=== PATIENT | male | born 1945 | race Caucasian/White ===

== ENCOUNTER 2020-03-24 12:54 | Inpatient (IN) | payer OTHER, MEDICAID ==
[~2020-03-24] VITALS: Ht 180.3 cm; Wt 106.6 kg
[2020-03-24] VITALS (14 sets, daily range): BP systolic 112–138; BP diastolic 37–82
--- NOTE | ~2020-03-24 | CON ---
[address] [address] CONSULTATION Name: RENEE COREA Room: [address] IN .R.#: [id number] Admission: 03/24/20 Attend Phys: Honorio Downs Discharge: Date of : 43 Report #: [id number] THIS REPORT FOR: //name// cc: Tevin Schafer MD, Richard T. MD ~ DATE OF SERVICE: 03/24/2020 NEPHROLOGY CONSULTATION REASON FOR CONSULT: Acute kidney injury. HISTORY OF PRESENT ILLNESS: A 74-year-old gentleman who was admitted from a nursing facility with altered mental status and elevated blood sugars. Two weeks ago, he was positive for COVID-19 and multiple people in the facility that he is at were also positive. He is very restless and not able to provide any meaningful history at present time. Case was discussed with Dr. Feliz in detail. He has an admission creatinine of 2 and is chronically ill-appearing. REVIEW OF SYSTEMS: Constitutional, psych, heme, eyes, ENT, respiratory, cardiac, GI, , endocrine, all negative except as documented above. PAST MEDICAL HISTORY: Insulin-dependent diabetes, hypertension, history of prostate surgery, back surgery, and seizure disorder. SOCIAL HISTORY: No tobacco or alcohol. FAMILY HISTORY: Not pertinent in this 74-year-old gentleman. CURRENT MEDICATIONS: Reviewed. PHYSICAL EXAMINATION: VITAL SIGNS: Blood pressure 138/58, pulse is in the low 100s, respirations 23, and temperature 36.1. GENERAL: Restless. EYES: Open. EARS: Externally normal. CARDIOVASCULAR: Tachycardic. LUNGS: Diminished. ABDOMEN: Soft. MUSCULOSKELETAL: Nontender. PSYCHIATRIC: Disoriented and nonverbal for me. LABORATORY DATA: White count 19.3, hemoglobin 19.5, and platelets 523. Sodium 149, potassium 3.3, chloride 104, bicarbonate 35, BUN 57, creatinine 2, glucose 531, calcium 9.8, magnesium 3, and albumin 3.7. [place] [address] CONSULTATION Name: RENEE COREA Room: [address] IN [facility].#: [id number] Admission: 03/24/20 Attend Phys: Honorio Downs Discharge: Date of : 43 Report #: [id number] ASSESSMENT: 1. Acute kidney injury secondary to volume depletion. He was on Lasix and had severe hyperglycemia presentation with a hemoglobin of about 20 and creatinine is 2 on admission. He was also on an ARB. UA is unrevealing. In 2015, creatinine 0.6. 2. Insulin-dependent diabetes, admitted with significant hyperglycemia. 3. Hypokalemia. 4. Metabolic alkalosis with a chemistry bicarbonate of 35. 5. Hypertension. 6. Seizure disorder. 7. Hypernatremia, sodium of 149 in the setting of a blood sugar of 531. Corrected sodium is 156. PLAN: 1. Aggressively hydrate. 2. Check phosphorus. 3. Replace potassium. We will recheck a potassium and replace as needed. Expect potassium to go down with correction of the hyperglycemia. 4. Hypermagnesemia. Magnesium of 3. We will monitor and expect this will stabilize. 5. Renal ultrasound not indicated at this time. We will continue with hydration. The patient is chronically ill appearing. Dr. Feliz is planning to contact family to clarify code status and goals of care. Case was discussed with Dr. Feliz. We will follow along with you. Thank you for requesting my opinion in the care and management of this patient. By: 1623 1958Achloé Cano MD /nt
[~2020-03-24 12:54] MED LIST: ALLE PO; ANUSOL-HC25 MG RECTAL; BAYER CHEWABLE81 MG PO; BENICAR20 MG PO; BENICAR40 MG PO; CELEBREX 200 M200 M1 PO; CLARITIN10 MG PO; COLACE100 MG PO; DILANTIN100 MG PO; ENOXAPARIN40 MG/0.1 SUBQ; FISH OIL 1,001000 M2 PO; HAIR, SKIN & N1 EAC1 PO; HYDROCODONE-AP1 EAC6 PO; HYDROCORTISONE30 G9 TOP; MILK OF MA2400 MG/10 PO; MIRALAX17 GM PO; NASAL SPRAY30 M1 NS; PROTONIX40 M1 PO; SALINE NASAL SP30 ML INH; SUDOGEST COLD PO; TYLENOL PM EX-1 EACH PO; TYLENOL325 MG PO; VITAMINC500 PO; [UNRECOGNIZED DRUG - OTHER] PO
--- NOTE | 2020-03-24 13:05 | NUR ---
PER REPORT FROM JOSUE, AT [facility], PT'S NORMAL MENTATION IS A&O X3, UP AD CANDIE. PT TESTED POSITIVE FOR COVID 2 WEEKS AGO. OVER LAST 3 DAYS, PT'S BLOOD SUGAR HAS BEEN ELEVATED AT 370+, PT NOT EATING, ELEVATED BP AND HR. PT HAS ALSO BEEN PLACED ON O2 SINCE COVID TEST. TODAY PT IS COMBATIVE, DISORIENTED AND HAS NEW PRESSURE WOUND ON BOTTOM. PT RIPPING OF NASAL CANULA AND DESATS WITHOUT O2.
[2020-03-24] MEDS ORDERED: LEVEMIR100 UNIT/1 SUBQ (13:08)
[2020-03-24] MEDS ORDERED: NOVOLOG100 UNIT/1 SUBQ (13:08)
[2020-03-24] MEDS ORDERED: NORVASC10 MG PO (13:08)
[2020-03-24] MEDS ORDERED: ARTIFICIAL TEAR1510 OPHTHALMIC (13:09)
[2020-03-24] MEDS ORDERED: FAMOTIDINE 20 M20 MG PO (13:09)
[2020-03-24] MEDS ORDERED: CLARITIN10 M3 PO (13:10)
[2020-03-24] MEDS ORDERED: FISH OIL 1,0001 EAC9 PO (13:10)
[2020-03-24] MEDS ORDERED: LASIX 40 MG TAB40 MG PO (13:10)
[2020-03-24] MEDS ORDERED: SALINE NOSE SPR45 ML NASAL (13:11)
[2020-03-24 13:12] LABS: HEMOGLOBIN 19.5 gm/dL (14.0-18.0); MCHC 32.7 g/dL (28.0-37.0); MPV 8.2 fl. (7.2-11.1)
[2020-03-24] MEDS ORDERED: THEREMS-M1 EACH PO (13:12)
[2020-03-24] MEDS ORDERED: ZINC SULFATE220 MG PO (13:13)
[2020-03-24] MEDS ORDERED: MILK OF MA400 MG/5 M PO (13:14)
[2020-03-24] MEDS ORDERED: FLONASE 0.05%50 MCG NARES (13:14)
[2020-03-24] MEDS ORDERED: GAS RELIEF80 MG PO (13:15)
[2020-03-24 13:16] LABS: HEMATOCRIT 59.7 % (42.0-52.0); MCH 28.6 pg (26.0-34.0); MCV 87.6 fL (80.0-100.0); NUCLEATED RBCS 0 /100WBC; PLATELET COUNT* 523 thou/uL (150-400); RBC 6.81 mil/uL (4.50-6.00); RDW-CV 14.9 % (10.5-14.5); WBC 19.3 thou/uL (4.0-11.0)
[2020-03-24] MEDS ORDERED: TRAMADOL 50 MG50 MG PO (13:16)
[2020-03-24] MEDS ORDERED: KETOCONAZOLE15 GM TOP (13:18)
[2020-03-24] MEDS ORDERED: NYSTOP (13:18)
[2020-03-24] MEDS ORDERED: VITAMIN A & D OI5 GM TOP (13:18)
[2020-03-24] MEDS ORDERED: DESONIDE CR. 1515 G1 TOP (13:19)
[2020-03-24] MEDS ORDERED: DECADRON PO (13:20)
[2020-03-24 13:25] LABS: ANION GAP 10 mmol/L (7-16); BUN 57 mg/dL (7-18); CALCIUM 9.8 mg/dL (8.5-10.1); CHLORIDE 104 mmol/L (98-107); CO2 35 mmol/L (21-32); POTASSIUM 3.3 mmol/L (3.5-5.1); SODIUM 149 mmol/L (136-145)
[2020-03-24 13:30] LABS: GLUCOSE 531 mg/dL (70-99)
[2020-03-24 13:30] LABS: BE 3.7 mmol/L (-2 to +3); PCO2 37.1 mmHg (35.0-45.0); PO2 61.7 mmHg (75.0-100.0)
[2020-03-24 13:33] LABS: ALBUMIN 3.7 g/dL (3.4-5.0); ALKALINE PHOSPHATASE 133 U/L (46-116); SGOT 18 U/L (15-37); TOTAL BILIRUBIN 0.9 mg/dL (<0.1-1.0); TOTAL PROTEIN 8.8 g/dL (6.4-8.2)
[2020-03-24 13:39] LABS: ABSOLUTE LYMPHOCYTES 2.9 thou/uL (0.8-5.3); ABSOLUTE MONOCYTES 0.4 thou/uL (0.0-1.2); PLATELET ESTIMATE ADEQUATE
[2020-03-24 13:54] LABS: SGPT 41 U/L (30-65)
[2020-03-24 14:01] LABS: URINE BILIRUBIN NEGATIVE (Negative); URINE BLOOD NEGATIVE (Negative); URINE CLARITY CLEAR; URINE COLOR YELLOW; URINE GLUCOSE-RANDOM 2+ (Negative); URINE KETONES NEGATIVE (Negative); URINE LEUKOCYTES-REFLEX NEGATIVE (Negative); URINE NITRITE-REFLEX NEGATIVE (Negative); URINE PROTEIN NEGATIVE (Negative); URINE SPECIFIC GRAVITY 1.025 (1.005-1.030); URINE UROBILINOGEN 0.2 E.U./dl (0.2-1.0)
--- NOTE | 2020-03-24 15:35 | EKG ---
[place] [address] ELECTROCARDIOGRAM REPORT Name: RENEE COREA Room: [address] ADM IN [facility]#: [id number] Admission: 03/24/20 Attend Phys: Sedrick Feliz Discharge: Date of : 43 Date of Service: 03/24/20 1349 Report #: [id number] THIS REPORT FOR: //name// [facility] ED Test Date: 2020-03-24 Test Time: 13:49:30 Pat Name: RENEE COREA Department: Room: [facility] Gender: M Ear Flap Binder: LARUIE : 1945 Requested By: Daylin Tam Order Number: [id number] MD: Channing German Measurements Intervals [place] Rate: 106 P: 49 HI: 169 QRS: 204 QRSD: 101 T: 45 QT: 352 QTc: 468 Interpretive Statements Sinus tachycardia Probable left atrial enlargement Inferior infarct, old Anterior infarct, old Compared to ECG 05/15/2015 13:33:04 Myocardial infarct finding now present Electronically Signed On 03-24-2020 15:35:00 [employer] by Channing German [email or web address] <ELECTRONICALLY SIGNED> By: Channing German MD, FACC 03/24/20 1535 1349 1349 Channing German MD, [facility] /EPI
[2020-03-24 17:46] LABS: ALBUMIN 3.4 g/dL (3.4-5.0); CALCIUM 9.5 mg/dL (8.5-10.1); CREATININE 1.9 mg/dL (0.6-1.3); MAGNESIUM 2.8 mg/dL (1.8-2.4); POTASSIUM 3.6 mmol/L (3.5-5.1)
--- NOTE | 2020-03-24 20:09 | NUR ---
admitted to icu @1600. combative at times with left arm. difficulty with iv access. dr amaral notified. warehouse foreman placed another peripheral. orders for picc in am. both sisters updated on condition and admission obtained from them. family requested dnr. dr amaral paged.
[2020-03-25] VITALS (16 sets, daily range): BP systolic 101–150; BP diastolic 57–135
[2020-03-25 04:30] LABS: ALBUMIN 2.9 g/dL (3.4-5.0); CALCIUM 9.5 mg/dL (8.5-10.1); CREATININE 1.4 mg/dL (0.6-1.3); MAGNESIUM 2.8 mg/dL (1.8-2.4); PHOSPHORUS* 3.6 mg/dL (2.5-4.9); POTASSIUM 3.1 mmol/L (3.5-5.1)
--- NOTE | 2020-03-25 05:35 | NUR ---
ASSUMED PATIENT CARE AT 1900. PATIENT ALERT TO SELF. PATIENT CAN BE AGITATED AND MOANS OUT LIKE HE IS IN PAIN. INSULIN GTT STILL GOING. BAKER IN PLACE TO DEPENDENT DRAINAGE. TURNED [id number]. WOUNDS TO BILATERAL BUTTOCKS. OPEN TO AIR. SCD'S REMEOVED R/T PATIENT STATUS. HOURLY BLOOD SUGARS COMPLETED.
--- NOTE | 2020-03-25 14:53 | NUR ---
WOUND NURSE: PATIENT SEEN TO ADDRESS BILATERAL BUTTOCK WOUNDS WHICH PRESENT WITH FULL THICKNESS TISSUE LOSS. RIGHT BUTTOCK WOUND MEASURES 4.0 X 1.5 X 0.2 CM. LEFT BUTTOCK MEASURES 2.5 X 2.0 X 0.2 CM. PRESENTS WITH PINK EARLY GRANULATION TISSUE IN THE WOUND BED. EDGES ARE IRRIGULAR AND APPEAR ERODED. THERE IS A MODERATE AMOUNT OF SEROUSANGUINOUS DRAINAGE NOTED. WOUNDS ARE PAINFUL TO TOUCH. CLEANSED WITH SOAP AND WATER, RINSED WITH WATER, THEN PATTED DRY. APPLIED SKIN PREP TO INTACT PERIWOUND TISSUE. APPLIED AQUACEL AG UNDER EXUDERM LP, THEN SECURED IN PLACE USING SURESITE TRANSPARENT DRESSING. PATIENT PLACED ON [facility] SPECIALTY BED AND IS ON A TURN SCHEDULE. PATIENT SHAKES HIS HEAD YES WHEN ASKED IF HE FEELS BETTER AFTER CARE PROVIDED. PATIENT IS TOTAL ASSIST WITH REPOSITIONING AND IS NOT TEACHEABLE AT TIME OF THIS ASSESSMENT.
--- NOTE | 2020-03-25 16:56 | NUR ---
ICU ROUNDS; PT PRESENTE W/AMS. PT NON VERBAL, PT WOULD NOT RESPOND VERBALLY TO CM, PT MUTTERED SOMETHNG UNINTELLIGIBLE. PT WAS COVID POSITIVE 2 WKS AGO THAT HAS CAUSE DECLINE IN PT CONDITION.
--- NOTE | 2020-03-25 18:29 | NUR ---
PATIENT BECOMING MORE ALERT, HE IS NOW ABLE TO ANSWER SIMPLE QUESTIONS. SISTER IN LAW CAME TO SEE HIM. PATIENT C/O PAIN AT BUTTOCKS AREA. PATIENT KEPT TURNED Q2H. WOUND CARE NURSE HERE TO SEE PATIENT TODAY AND ORDERS RECIEVED FOR WOUNDS. NO OTHER CONCERNS AT THIS TIME. WILL CONTINUE TO MONITOR AND CARE PER PLAN OF CARE.
[2020-03-26] VITALS (13 sets, daily range): BP systolic 103–141; BP diastolic 55–96
[2020-03-26 00:05] LABS: URINE BILIRUBIN NEGATIVE (Negative); URINE BLOOD 1+ (Negative); URINE CLARITY SL CLOUDY; URINE COLOR YELLOW; URINE GLUCOSE-RANDOM 2+ (Negative); URINE KETONES NEGATIVE (Negative); URINE LEUKOCYTES NEGATIVE (Negative); URINE NITRITE NEGATIVE (Negative); URINE PROTEIN NEGATIVE (Negative); URINE UROBILINOGEN 0.2 E.U./dl (0.2-1.0)
[2020-03-26 02:31] LABS: SQUAMOUS 0-3 Few /LPF (0-3)
[2020-03-26 02:32] LABS: URINE RBC 3-10 Few /HPF (0-2); URINE WBC 6-15 Few /HPF (0-5)
[2020-03-26 02:33] LABS: BACTERIA 1-9 Few /HPF (None Seen); URIC ACID CRYSTALS >10 Many /LPF (None Seen)
[2020-03-26 05:28] LABS: ABSOLUTE BASOPHILS 0.1 thou/uL (0.0-0.2); ABSOLUTE EOSINOPHILS 0.1 thou/uL (0.0-0.7); ABSOLUTE LYMPHOCYTES 3.2 thou/uL (0.8-5.3); ABSOLUTE MONOCYTES 1.2 thou/uL (0.0-1.2); BASOPHILS 0.8 %; EOSINOPHILS 1.1 %; HEMATOCRIT 45.2 % (42.0-52.0); LYMPHOCYTES 25.4 %; MCH 28.2 pg (26.0-34.0); MCHC 32.7 g/dL (28.0-37.0); MCV 86.3 fL (80.0-100.0); MONOCYTES 9.7 %; MPV 7.9 fl. (7.2-11.1); NUCLEATED RBCS 0 /100WBC; RBC 5.23 mil/uL (4.50-6.00); RDW-CV 14.3 % (10.5-14.5); WBC 12.6 thou/uL (4.0-11.0)
[2020-03-26 05:31] LABS: HEMOGLOBIN 14.8 gm/dL (14.0-18.0); PLATELET COUNT* 273 thou/uL (150-400)
[2020-03-26 07:29] LABS: ALBUMIN 2.5 g/dL (3.4-5.0); ALKALINE PHOSPHATASE 95 U/L (46-116); ANION GAP 8 mmol/L (7-16); BUN 31 mg/dL (7-18); CALCIUM 8.3 mg/dL (8.5-10.1); CHLORIDE 113 mmol/L (98-107); CO2 29 mmol/L (21-32); GLUCOSE 124 mg/dL (70-99); PHOSPHORUS* 3.4 mg/dL (2.5-4.9); POTASSIUM 3.4 mmol/L (3.5-5.1); SGOT 33 U/L (15-37); SGPT 34 U/L (30-65); SODIUM 150 mmol/L (136-145); TOTAL BILIRUBIN 0.9 mg/dL (<0.1-1.0); TOTAL PROTEIN 5.7 g/dL (6.4-8.2)
--- NOTE | 2020-03-26 09:15 | NUR ---
9242 ASSUMED CARE OF PATIENT. PLEASE SEE DOCUMENTED ASSESSMENT. PT REMAINS ON INSULIN DRIP
--- NOTE | 2020-03-26 14:10 | NUR ---
ICU rounds: M/s status. Off insulin gtt
--- NOTE | 2020-03-26 16:16 | NUR ---
tranferred to 313 with all records and belongings
--- NOTE | 2020-03-26 17:00 | NUR ---
REPORT RECIEVED FROM BRIAN RODARTE. I CONCUR WITH HER DOCUMENTATION. PT TRANSFERED TO ROOM 313. PT ON SPECIALTY BED. FALL PRECAUTIONS IN PLACE. FREQUENTLY USED ITEMS WITHIN REACH. PICC PATENT, FLUIDS INFUSING. JASPER REMAINS AT BEDSIDE.
--- NOTE | 2020-03-26 18:48 | NUR ---
1530 LATE ENTRY: PATIENT IS MED/SURG STATUS AND WILL BE TRANSFERRED TO ROOM 313. REPORT CALLED TO CAYDEN HASSAN
--- NOTE | 2020-03-27 08:09 | NUR ---
PATIENT HAS RESTED WELL THROUGHOUT THE NIGHT. VSS ON RA. MEDICATIONS GIVEN ORDERED AND CHARTED. PATIENT REMAINS BEDREST. BAKER TO DEPENDENT DRAINAGE WITH YELLOW URINE OUTPUT. RIGHT UPPER ARM TRIPLE LUMEN PICC-D5W @ 50ML/HR. DRESSING TO COCCYX IS INTACT WITH SMALL AMOUNT OF DRAINAGE NOTED. FALL PRECAUTIONS IN PLACE AND HOURLY ROUNDS MADE. WILL CONTINUE WITH PLAN OF CARE AND NURSING TO MONITOR.
--- NOTE | 2020-03-27 10:04 | NUR ---
TRANSFERRED FROM ICU LAST EVENING. PER REVIEW OF CHART, PT.IS A [facility] RESIDENT OF [facility]. HAD A TBI YEARS AGO. NORMALLY IS UP AD CANDIE, HAD A GOOD APPETITE, PLEASANT, ETC. PT.STILL CONFUSED,AGITATED AT TIMES, ETC. WILL FOLLOW FOR A SAFE DISCHARGE PLAN.
[2020-03-27 14:08] LABS: ALBUMIN 2.4 g/dL (3.4-5.0); CALCIUM 8.6 mg/dL (8.5-10.1); POTASSIUM 4.3 mmol/L (3.5-5.1); TOTAL BILIRUBIN 0.8 mg/dL (<0.1-1.0); TOTAL PROTEIN 5.4 g/dL (6.4-8.2)
[2020-03-27 16:00] VITALS: BP 134/65
--- NOTE | 2020-03-27 16:57 | NUR ---
PATIENT TURNED Q2. PATIENT A SET UP MEAL, PATIENT FEEDS SELF. PICC SL, FLUSHING WITHOUT DIFFICULTY AND GOOD BLOOD RETURN NOTED. NO COMPLAINTS OF PAIN. INSULIN GIVEN WITH MEALS ORDERED. BAKER REMAINS DRAINING YELLOW URINE. POSSIBLE DISCHARGE TOMORROW.
[2020-03-27 20:00] VITALS: BP 132/72
--- NOTE | 2020-03-28 04:54 | NUR ---
ASSESSMENT: PT REMAIN ALERT AND ORIENT TIMES THREE, VERY SLOW TO RESPOND. BAKER PATENT, NO BM THIS SHIFT. BR WITH TURNS EVERY TWO HOURS. VSS, AFEBRILE. NON-EVENTFUL NIGHT, SLEPT MOST OF THE SHIFT. SLOW PROGRESS TOWARDS DC GOALS, WILL CONTINUE TO MONITOR.
[2020-03-28 07:45] VITALS: BP 142/74
[2020-03-28 11:21] LABS: URINE BILIRUBIN NEGATIVE (Negative); URINE BLOOD 2+ (Negative); URINE CLARITY CLEAR; URINE COLOR YELLOW; URINE GLUCOSE-RANDOM 2+ (Negative); URINE KETONES TRACE (Negative); URINE LEUKOCYTES 1+ (Negative); URINE NITRITE NEGATIVE (Negative); URINE PROTEIN NEGATIVE (Negative); URINE UROBILINOGEN 0.2 E.U./dl (0.2-1.0)
[2020-03-28 11:26] LABS: BACTERIA 1-9 Few /HPF (None Seen); CASTS None Seen /LPF (None Seen); CRYSTALS None Seen /LPF (None Seen); MUCUS None Seen strn/LPF (None Seen); SQUAMOUS 0-3 Few /LPF (0-3); URINE WBC 6-15 Few /HPF (0-5)
[2020-03-28] MEDS ORDERED: CEFDINIR300 MG PO (12:22)
--- NOTE | 2020-03-28 13:29 | NUR ---
PT.TO DISCHARGE BACK TO [facility] TODAY. NOTIFIED CHAR[facility]. SHE CHECKED AND PT.DOES NOT NEED ANOTHER COVID TEST TO RETURN. FAXED DISCHARGE SUMMARY AND MEDICATION ORDERS TO [facility] [phone]. CHART COPIED TO GO WITH PT. NURSING GIVEN NUMBER TO CALL REPORT. DAUGHTER AT BEDSIDE. PT.WILL GO BY AMBULANCE. CM WILL ARRANGE A [id number] DISCHARGE TIME.
--- NOTE | 2020-03-28 15:16 | NUR ---
CHART COPIED. REPORT CALLED TO FACILITY. PICC AND BAKER REMOVED. PT BELONGINGS GATHERED. PT LEFT VIA EMS TO FACILITY. FALL RISK PRECAUTIONS IN PLACE. Q2 TURNS COMPLETED. HOURLY ROUNDING COMPLETED.
== END 2020-03-28 15:16 | DRG 871 ==
LOC: M.ERS 12:54 → M.TBA-ER 14:07 → M.ICU 14:07 → M.3W 03-26 15:53
PROVIDERS: Internal Medicine Nephrology; Personal Emergency Response Attendant; ADMIT Internal Medicine; ATTEND Internal Medicine
PROC: 05HY33Z Insertion of Infusion Device into Upper Vein, Percutaneous Approach (ICD-10-PCS; principal; 2020-03-25)
DX: A41.9 Sepsis, unspecified organism (principal); E11.10 Type 2 diabetes mellitus with ketoacidosis without coma; G93.41 Metabolic encephalopathy; N17.0 Acute kidney failure with tubular necrosis; N39.0 Urinary tract infection, site not specified; E87.0 Hyperosmolality and hypernatremia; L03.314 Cellulitis of groin; E11.65 Type 2 diabetes mellitus with hyperglycemia; E86.0 Dehydration; I10 Essential (primary) hypertension; E86.9 Volume depletion, unspecified; E87.6 Hypokalemia; E79.0 Hyperuricemia without signs of inflammatory arthritis and tophaceous disease; E66.9 Obesity, unspecified; G40.909 Epilepsy, unspecified, not intractable, without status epilepticus; Z20.828 Contact with and (suspected) exposure to other viral communicable diseases; Z79.82 Long term (current) use of aspirin; Z79.4 Long term (current) use of insulin; Z79.899 Other long term (current) drug therapy; Z88.1 Allergy status to other antibiotic agents; Z88.8 Allergy status to other drugs, medicaments and biological substances; Z68.32 Body mass index [BMI] 32.0-32.9, adult; Z23 Encounter for immunization